=== PATIENT | male | born 1965 | race Caucasian/White ===

== ENCOUNTER 2020-03-07 16:32 | Emergency (ER) | payer OTHER, SELFPAY ==
[2020-03-07 16:43] VITALS: BP 149/89; PULSE 98; RESP 20; TEMP 36.6; O2SAT 98
--- NOTE | 2020-03-07 17:04 | ED.SKABFB ---
HPI - Skin/Abscess/Foreign Bdy General Chief complaint: Skin/Abscess/Foreign Body Stated complaint: lt hand pain History of Present Illness HPI narrative: Patient is a 54-year-old male who presents with possible IV infiltration site infection to left hand. Patient reports having outpatient surgery this a.m. he reports late this afternoon he began seeing redness, warmth, tenderness and swelling to the dorsal surface of left hand where IV was initiated but was unable to be used. He reports calling surgery center and they had closed. He reports pain with palpation, he denies taking over counter medications at this time. MD complaint: other (Cellulitis, IV infiltration) Related Data Home Medications Medication Instructions Recorded Confirmed amlodipine 10 mg PO DAILY 03/07/20 03/07/20 atorvastatin 40 mg PO DAILY 03/07/20 03/07/20 hydrochlorothiazide 25 mg PO DAILY 03/07/20 03/07/20 meloxicam 15 mg PO DAILY 03/07/20 03/07/20 metoprolol succinate 25 mg PO DAILY 03/07/20 03/07/20 montelukast 10 mg PO HS 03/07/20 03/07/20 quinapril 20 mg PO DAILY 03/07/20 03/07/20 Allergies Allergy/AdvReac Type Severity Reaction Status Date / Time No Known Allergies Allergy Unknown Verified 03/07/20 16:49 Review of Systems Review of Systems: Narrative: CONSTITUTIONAL: Denies fever, chills, or sweats. EYES: Denies visual changes, redness, or discharge. ENT: Denies rhinorrhea, congestion, sore throat, or otalgia. CARDIOVASCULAR: Denies chest pain, palpitations, or edema. RESPIRATORY: Denies cough or dyspnea. GASTROINTESTINAL: Denies abdominal pain, nausea, vomiting, or diarrhea. GENITOURINARY: Denies dysuria or hematuria. SKIN: Denies rash or itching. MUSCULOSKELETAL: Left hand pain NEUROLOGIC: Denies headache, numbness, dizziness, or weakness. PSYCHIATRIC: Denies anxiety or depression. [facility] Past Medical History Medical History Diabetes type 2, controlled HTN (hypertension) Hypercholesterolemia Surgical History Surgical History H/O foot surgery Family History Family History (Updated 03/07/20 @ 17:18 by NATALEE Henry) Other No significant family history Social History Social History (Updated 03/07/20 @ 17:08 by NATALEE Henry) Smoking status: Never smoker Alcohol intake: current Alcohol use details: Occasional Substance use: never Living arrangements: with family Exam Narrative: Exam Narrative: GENERAL: Well-appearing, well-nourished, and in no acute distress. HEAD: Normocephalic, atraumatic. EYES: No redness or drainage. ENT: Mucous membranes pink and moist. CHEST: No respiratory distress. EXTREMITIES: Normal range of motion. SKIN: Approximate 4 cm circular area of edema, erythema and warmth to dorsal surface of left hand NEURO: No focal deficits. Alert and oriented x3. Gait steady. PSYCH: Normal affect. No signs of depression or anxiety. Course Vital Signs Vital signs: Vital Signs Temperature 36.6 C 03/07/20 16:43 Pulse Rate 98 03/07/20 16:43 Respiratory Rate 20 03/07/20 16:43 Blood Pressure 149/89 H 03/07/20 16:43 Pulse Oximetry 98 03/07/20 16:43 Temperature 36.6 C 03/07/20 16:43 Pulse Rate 98 03/07/20 16:43 Respiratory Rate 20 03/07/20 16:43 Blood Pressure 149/89 H 03/07/20 16:43 Pulse Oximetry 98 03/07/20 16:43 MDM - Skin/Abscess/Foreign Bdy MDM Narrative Medical decision making narrative: Patient has an approximate 4 cm area of erythema, edema and tenderness to dorsal surface of left hand. Patient had IV placed earlier this a.m. but reports swelling did not start until the past few hours. Patient most likely has allergic reaction to drug or start of cellulitis. Discussed with patient symptomatic treatment. Patient also started on cephalexin at this time as he is unable to get a hold of surgeon or PCP until next week. Area [facility]
== END 2020-03-07 17:15 | disposition home or self-care (01) ==
PROVIDERS: Emergency Provider Nurse Practitioner
DX: L03.114 Cellulitis of left upper limb (principal); T80.1XXA Vascular complications following infusion, transfusion and therapeutic injection, initial encounter; E11.9 Type 2 diabetes mellitus without complications; I10 Essential (primary) hypertension; E78.00 Pure hypercholesterolemia, unspecified
CPT/HCPCS: 99213; G0463

== ENCOUNTER 2020-10-16 15:42 | Emergency (ER) | payer OTHER, SELFPAY ==
--- NOTE | ~2020-10-16 | XR_ITS ---
EXAMINATION: XR chest 2V DATE: 10/16/2020 17:04 INDICATION: Fever. TECHNIQUE: Frontal and lateral views of the chest were obtained. COMPARISON: None. FINDINGS: There is mild atelectasis in lingula. No pleural effusion or pneumothorax. The heart size i s normal. There is mild chronic anterior wedging of multiple lower thoracic vertebral bodies. IMPRESSION: 1. Mild atelectasis in lingula. Reviewed, dictated and finalized at location A.
[2020-10-16 15:51] VITALS: BP 141/91; PULSE 124; RESP 16; TEMP 36.9; O2SAT 96
--- NOTE | 2020-10-16 16:14 | ED.GENADULT ---
HPI - General Adult General Chief complaint: Upper Respiratory Infection Stated complaint: fever/cough/chills/upset stomach Time Seen by Provider: 10/16/20 16:11 Source: patient and RN notes reviewed Mode of arrival: ambulatory Limitations: no limitations History of Present Illness HPI narrative: 55-year-old male presents with complaints of cough, chills, fever, and decreasing appetite for the past 4 days. Juan Manuel reports increasing URI symptoms for the past 48 hours with high fevers and diarrhea. Ibuprofen 400, last taken on 10/15/2020 and Tylenol 650mg today at 09:00 without relief. Dry cough with chest congestion. ?Rhinorrhea and nasal congestion. ?Denies sore throat. ?High fevers, highest 101.1F, orally. ?No drooling, neck or throat swelling. ?No chest pain, wheezing, or shortness of breath. ?Denies nausea, vomiting, and abdominal pain. Tolerating liquids well. Remains active. ?The patient reports he has not been diagnosed with COVID-19. ?The patient reports he received 2 CASTT COVID-19 vaccines. ?The patient reports he is not waiting for the results of a COVID-19 lab test. ?The patient reports he does not have sweats, weakness, fatigue, or myalgia. The patient reports he does not have a worsening cough. ?The patient reports he does not have any loss of taste and diarrhea. ?Denies recent traveling. ?Denies concerns for COVID-19 or exposures. ?At this time, the patient is not suspected of having COVID-19.? Some parts of this dictation were generated by voice recognition software and may contain typographical and/or grammatical inaccuracies. Related Data Home Medications Medication Instructions Recorded Confirmed amlodipine 10 mg PO DAILY 03/07/20 10/16/20 atorvastatin 40 mg PO DAILY 03/07/20 10/16/20 hydrochlorothiazide 25 mg PO DAILY 03/07/20 10/16/20 meloxicam 15 mg PO DAILY 03/07/20 10/16/20 metoprolol succinate 25 mg PO DAILY 03/07/20 10/16/20 quinapril 40 mg PO DAILY 03/07/20 10/16/20 metformin 2,000 mg PO DAILY 10/16/20 10/16/20 semaglutide [Ozempic] 0.25 mg SUBCUT WEEKLY 10/16/20 10/16/20 Allergies Allergy/AdvReac Type Severity Reaction Status Date / Time No Known Allergies Allergy Unknown Verified 10/16/20 15:53 Review of Systems Review of Systems: Narrative: CONSTITUTIONAL: Complaints of chills, fever. Denies sweats, fatigue. EYES: Denies visual changes, redness, discharge. ENT: Complains of rhinorrhea, congestion. Denies sore throat, otalgia. CARDIOVASCULAR: Denies chest pain, palpitations, edema. RESPIRATORY: Denies dyspnea, wheezing. Complaints of dry cough. GASTROINTESTINAL: Denies abdominal pain, nausea, vomiting, diarrhea. GENITOURINARY: Denies dysuria, hematuria, abnormal discharge. SKIN: Denies rash or itching. MUSCULOSKELETAL: Denies acute back pain, joint pain, or myalgia. NEUROLOGIC: Denies numbness or focal weakness. PSYCHIATRIC: Denies anxiety or depression. [facility] Past Medical History Medical History (Updated 10/17/20 @ 00:00 by Josefa Guerrero) Cyst Diabetes type 2, controlled HTN (hypertension) Hypercholesterolemia Surgical History Surgical History (Updated 10/16/20 @ 17:10 by NATALEE Rao) H/O foot surgery Arch repair to the right foot History of carpal tunnel surgery Right hand History of cholecystectomy History of removal of cyst Removed from left arm History of shoulder surgery Right rotator cuff Family History Family History (Updated 10/16/20 @ 17:11 by NATALEE Rao) Father Cancer Mother Cerebrovascular accident Social History Social History (Updated 10/16/20 @ 17:11 by NATALEE Rao) Smoking status: Never smoker Tobacco type: cigarettes Second hand tobacco smoke exposure: No Alcohol intake: current Alcohol use details: Occasional Substance use: never Substance use type: does not use Living arrangements: with family Occupation/Education: occupation Gender identity (if verba
[2020-10-16 17:30] VITALS: BP 123/85; PULSE 114
[2020-10-17 19:11] LABS: SARS-CoV-2 RNA PCR Negative
== END 2020-10-16 17:30 | disposition home or self-care (01) ==
PROVIDERS: Emergency Provider Nurse Practitioner Family
DX: J06.9 Acute upper respiratory infection, unspecified (principal); R50.9 Fever, unspecified; Z20.822 Contact with and (suspected) exposure to COVID-19; E11.9 Type 2 diabetes mellitus without complications; I10 Essential (primary) hypertension; E78.00 Pure hypercholesterolemia, unspecified
CPT/HCPCS: 71046; 87081; 87426; 87880; 99213; C9803; G0463; U0003; U0005

== ENCOUNTER 2021-05-07 16:52 | Emergency (ER) | payer OTHER, SELFPAY ==
--- NOTE | ~2021-05-07 | XR_ITS ---
EXAMINATION: XR knee LT 3V EXAM DATE: 05/07/2021 17:11 INDICATION: Possible Dislocation, Fell Today, Can't Straighten Leg. TECHNIQUE: Three projections of the left knee. There is no prior study for comparison. FINDINGS: Suspicion of left quadriceps tendon rupture, couple of small bone fragments which could be suprapatellar enthesopathy with 3 cm of cephalad displacement. Patella baja, laxity to the patellar tendon. 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 IMPRESSION: Probable left quadriceps tendon rupture. Reviewed, dictated and finalized at location G. [facility]
[2021-05-07 16:52] VITALS: PULSE 114; RESP 14; TEMP 36.8; O2SAT 97
[2021-05-07 16:56] VITALS: BP 167/90
--- NOTE | 2021-05-07 17:01 | ED.GENADULT ---
HPI - General Adult General Chief complaint: Extremity Injury, Lower Stated complaint: FALL? DISLOCATED L PATELLA Time Seen by Provider: 05/07/21 16:57 Source: patient Mode of arrival: EMS Limitations: no limitations History of Present Illness HPI narrative: Patient is a 55 yo male with CC of injury to left knee pain that began after getting his left foot stuck in the truck rail while trying to climb in and falling. He states he actually caught himself, but reported deformity and pain to the left knee. He states the pain has since greatly improved but his knee feels awkward when he tried to bend it. He denies head impact, loss of consciousness or other areas of pain or discomfort. He states he has diabetes but denies any other medical conditions. Related Data Home Medications Medication Instructions Recorded Confirmed amlodipine 10 mg PO DAILY 03/07/20 10/16/20 atorvastatin 40 mg PO DAILY 03/07/20 10/16/20 hydrochlorothiazide 25 mg PO DAILY 03/07/20 10/16/20 meloxicam 15 mg PO DAILY 03/07/20 10/16/20 metoprolol succinate 25 mg PO DAILY 03/07/20 10/16/20 quinapril 40 mg PO DAILY 03/07/20 10/16/20 metformin 2,000 mg PO DAILY 10/16/20 10/16/20 semaglutide [Ozempic] 0.25 mg SUBCUT WEEKLY 10/16/20 10/16/20 Allergies Allergy/AdvReac Type Severity Reaction Status Date / Time No Known Allergies Allergy Unknown Verified 10/16/20 15:53 Review of Systems Review of Systems: CONSTITUTIONAL: Denies fever, chills, or sweats. EYES: Denies visual changes, redness, or discharge. ENT: Denies rhinorrhea, congestion, sore throat, or otalgia. CARDIOVASCULAR: Denies chest pain, palpitations, or edema. RESPIRATORY: Denies cough or dyspnea. GASTROINTESTINAL: Denies abdominal pain, nausea, vomiting, or diarrhea. GENITOURINARY: Denies dysuria or hematuria. SKIN: Denies rash or itching. MUSCULOSKELETAL: Reports left knee pain Denies back pain, joint pain, or myalgia. NEUROLOGIC: Denies headache, numbness, dizziness, or weakness. PSYCHIATRIC: Denies anxiety or depression. [facility] Past Medical History Medical History (Updated 05/07/21 @ 18:14 by Aneudy Wheeler PA-C) Cyst Diabetes type 2, controlled HTN (hypertension) Hypercholesterolemia Surgical History Surgical History (Updated 10/16/20 @ 17:10 by NATALEE Rao) H/O foot surgery Arch repair to the right foot History of carpal tunnel surgery Right hand History of cholecystectomy History of removal of cyst Removed from left arm History of shoulder surgery Right rotator cuff Family History Family History (Updated 10/16/20 @ 17:11 by NATALEE Rao) Father Cancer Mother Cerebrovascular accident Social History Social History (Updated 10/16/20 @ 17:11 by NATALEE Rao) Smoking status: Never smoker Tobacco type: cigarettes Second hand tobacco smoke exposure: No Alcohol intake: current Alcohol use details: Occasional Substance use: never Substance use type: does not use Gender identity (if verbalized by the patient): Male Sexual Orientation (if Verbalized by the Patient): Straight or Heterosexual Exam Narrative: GENERAL: Well-appearing, well-nourished, and in no acute distress. HEAD: Normocephalic, atraumatic. EYES: PERRLA and EOMI. NECK: Supple. ROM intact CHEST: Clear to auscultation. No respiratory distress. No wheezes rales or rhonchi HEART: Regular rate and rhythm. ABDOMEN: Soft, nontender, nondistended, normal active bowel sounds. EXTREMITIES: Deformity to superior aspect of left patella- clinically suspect quadriceps injury. Patella is aligned. Extremity extendedn SKIN: Warm, dry, no rash. NEURO: No focal deficits. Alert and oriented x3. PSYCH: Normal mood and affect. Course Vital Signs Vital signs: Vital Signs Temperature 98.2 F 05/07/21 16:52 Pulse Rate 114 H 05/07/21 16:52 Respiratory Rate 14 05/07/21 16:52 Pulse Oximetry 97 05/07/21 16:52 Temperature 98.2 F
[2021-05-07] MEDS: HYDROcodone/acetaminophen (*CRX) 5-325 MG TABLET 1 TAB PO (18:44)
== END 2021-05-07 19:05 | disposition home or self-care (01) ==
PROVIDERS: Emergency Provider Emergency Medicine
DX: S76.112A Strain of left quadriceps muscle, fascia and tendon, initial encounter (principal); E11.9 Type 2 diabetes mellitus without complications; I10 Essential (primary) hypertension; E78.00 Pure hypercholesterolemia, unspecified; Z79.899 Other long term (current) drug therapy; Z79.84 Long term (current) use of oral hypoglycemic drugs; W23.1XXA Caught, crushed, jammed, or pinched between stationary objects, initial encounter
CPT/HCPCS: 73562; 99283; A9270